=== PATIENT | female | born 1965 | race American Indian/Alaskan Native ===

== ENCOUNTER 2018-01-25 16:54 | Emergency (ER) | payer OTHER ==
[2018-01-25] MEDS ORDERED: CATAPRES ONE (17:18)
[2018-01-25] MEDS ORDERED: CATAPRES PO ONE (17:20)
[2018-01-25] MEDS ORDERED: NORCO 5/325 PO ONE (18:24)
[2018-01-25] MEDS ORDERED: MOTRIN PO ONE (18:24)
[2018-01-25 18:46] VITALS: BP 117/84
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
== END 2018-01-25 19:21 | disposition home or self-care (01) ==
LOC: ED 16:54
DX: M54.5 Low back pain (principal); I16.0 Hypertensive urgency; Z88.8 Allergy status to other drugs, medicaments and biological substances; I10 Essential (primary) hypertension; F17.200 Nicotine dependence, unspecified, uncomplicated; F12.10 Cannabis abuse, uncomplicated; V73.6XXA Passenger on bus injured in collision with car, pick-up truck or van in traffic accident, initial encounter; Y92.488 Other paved roadways as the place of occurrence of the external cause; Y93.89 Activity, other specified; Y99.8 Other external cause status
CPT/HCPCS: 99282